=== PATIENT | female | born 1975 | race Two or more races ===

== ENCOUNTER → 2018-11-27 | Outpatient (CLI) | payer SELFPAY ==
--- NOTE | 2018-11-27 13:58 | RADIOLOGY REPORT (SQ) ---
EXAM DESCRIPTION: U/S OB 14+ TRNABD 1GES W/O DOP COMPLETED DATE/TIME: 11/27/2018 1:45 pm REASON FOR STUDY: Z34.82 ENCOUNTER FOR SUPRVSN OF NORMAL , SECOND TRIMESTER Z34.82 ENCOUNT ER FOR SUPRVSN OF NORMAL , SECOND TRI COMPARISON: None. TECHNIQUE: Static and Dynamic grayscale imaging performed of gravid uterus using transabdominal appr oach. Additional selected color Doppler and spectral images recorded. All stored on PACS. LIMITATIONS: None. FINDINGS: FETUSES SEEN:1 EGA: 26 weeks 1 day Calculated using BPD,FL,HC,AC documented on images. No discrepancy with clinical dates. IGOR: 03/04/2019 EFW: 892 grams PERCENTILE: 4% MAURO: 19.9 cm PLACENTA: Anterior. PRESENTATION: Cephalic. ANATOMY: HEART RATE: 140 beats per minute. FOUR CHAMBER HEART: Visualized. THREE VESSEL CORD: Yes. CORD INSERTION: Visualized. KIDNEYS AND BLADDER: Visualized. Appear normal. STOMACH: Visualized. Appears normal. SPINE: Normal as visualized. BRAIN AND LATERAL VENTRICLES: Visualized. Appear normal. OTHER: No other significant finding. MATERNAL ADNEXA: Maternal right ovary measures 3.9 cm x 2.2 cm. Maternal left ovary not visualized. CERVICAL LENGTH: 4.7 cm Closed. OTHER: No other significant finding. IMPRESSION: LIVING INTRAUTERINE . ESTIMATED GESTATIONAL AGE: 26 weeks 1 day NO VISUALIZED ANOMALIES. Trimester of : Second trimester - 13 weeks 1 day to 27 weeks 6 days. TECHNICAL DOCUMENTATION: JOB ID: [id number] [employer]- All Rights Reserved Reading location - IP/workstation name: [email or web address]
== END ==
LOC: RAD 13:00
PROVIDERS: ATTEND Nurse Practitioner Family
DX: Z34.82 Encounter for supervision of other normal pregnancy, second trimester (principal)
CPT/HCPCS: 76805

== ENCOUNTER → 2018-12-25 | Outpatient (CLI) | payer SELFPAY ==
--- NOTE | 2018-12-25 14:12 | RADIOLOGY REPORT (SQ) ---
EXAM DESCRIPTION: U/S OB 14+ TRNABD 1GES W/O DOP COMPLETED DATE/TIME: 12/25/2018 1:40 pm REASON FOR STUDY: Z34.83 ENCOUNTER FOR SUPRVSN OF NORMAL , THIRD TRIMESTER Z34.83 ENCOUNTE R FOR SUPRVSN OF NORMAL , THIRD TRIM COMPARISON: 11/27/2018 TECHNIQUE: Limited transabdominal grayscale ultrasound for evaluation of specific requested obstetri nataliya parameters. LIMITATIONS: None. FINDINGS: CERVICAL LENGTH: 4.6 cm. Closed. MAURO: 14.7 cm. FHR: 160 beats per minute. PRESENTATION: Cephalic. PLACENTA: Anterior, grade 1. ANATOMY: Not assessed OTHER: Estimated gestational age 30 weeks 1 day. Estimated date of delivery 03/04/2019 IMPRESSION: LIMITED OBSTETRICAL ULTRASOUND WITH MEASURED PARAMETERS DELINEATED ABOVE. Trimester of : Third trimester - 28 weeks to delivery. TECHNICAL DOCUMENTATION: JOB ID: [id number] [employer]- All Rights Reserved Reading location - IP/workstation name: [email or web address]
== END ==
LOC: RAD 13:57
PROVIDERS: ATTEND Midwife
DX: Z34.83 Encounter for supervision of other normal pregnancy, third trimester (principal)
CPT/HCPCS: 76805

== ENCOUNTER 2019-02-13 11:15 | Outpatient (CLI) | payer SELFPAY ==
--- NOTE | 2019-02-13 12:15 | Non Stress Test Report ---
Non Stress Test Datetime Report Generated by CPN: 02/13/2019 12:14 DEMOGRAPHIC EGA NST: 37.2 INDICATION Indication for Study (NST) Other: AMA VITAL SIGNS Temperature - NST: 98.2 Pulse - NST: 89 RESP - NST: 18 NBPSYS NST: 106 NBPDIA NST: 58 MONITORING Monitor Explained: Monitor Explained; Test Explained; Patient Verbalized Understanding Time on Monitor: 02/13/2019 11:38 Time off Monitor: 02/13/2019 12:10 NST Duration: 32 NST INTERVENTIONS NST Interventions: Reposition Patient Physician Notified NST: N Olsen BABY A: [id number] BABY A Movement : Present Contraction Frequency : 0 FHR Baseline : 130 Accelerations : 15X15 Decelerations : None Variability : Moderate 6-25bpm NST Review: Meets Criteria for Reactive NST NST Review and Verified By : SAutry NST Results: Reactive NST REPORT Report Trigger: Send Report
== END 2019-02-13 12:24 | disposition home or self-care (01) ==
LOC: LC 11:15
PROVIDERS: ATTEND Obstetrics & Gynecology
PROC: 4A1HXCZ Monitoring of Products of Conception, Cardiac Rate, External Approach (ICD-10-PCS; principal; 2019-02-13)
DX: O09.523 Supervision of elderly multigravida, third trimester (principal); Z3A.37 37 weeks gestation of pregnancy
CPT/HCPCS: 59025

== ENCOUNTER 2019-03-01 06:29 | Inpatient (IN) | payer SELFPAY ==
[2019-03-01] MEDS ORDERED: RINGERS SOLUTION,LACTATED 1,000 ML IV PRN (07:30)
[2019-03-01] MEDS ORDERED: OXYTOCIN/NORMAL SALINE 20 UNIT/1,000 ML RTUINJ IV PRN (07:30)
[2019-03-01] MEDS ORDERED: RINGERS SOLUTION,LACTATED 300 ML IV ONE (07:30)
[2019-03-01] MEDS ORDERED: PENICILLIN G-K 5 MILLION UNIT VIAL IV ONE (07:32)
[2019-03-01] MEDS ORDERED: PENICILLIN G-K 5 MILLION UNIT VIAL ONE (07:46)
[2019-03-01] MEDS ORDERED: OXYTOCIN/NORMAL SALINE 0 UNIT/0 ML RTUINJ ONE (08:02)
[2019-03-01] MEDS ORDERED: LIDOCAINE 1% INJ-PF (10 MG/ML) 30 ML SDV ONE (08:02)
[2019-03-01] MEDS ORDERED: MISOPROSTOL 0.2 MG TABLET ONE (08:02)
[2019-03-01] MEDS ORDERED: OXYTOCIN 10 UNIT/ML VIAL ONE (08:02)
[2019-03-01] MEDS ORDERED: INFLUENZA QUAD (6MOS+) 2019-20 VAC 0.5 ML SYR IM ONE (08:04)
[2019-03-01 08:14] LABS: ABSOLUTE EOSINOPHILS # (AUTO) 0.2 10^3/uL (0.0-0.6); ABSOLUTE LYMPHOCYTES (AUTO) 2.2 10^3/uL (0.5-4.7); ABSOLUTE MONOCYTES (AUTO) 0.6 10^3/uL (0.1-1.4); BASOPHILS % (AUTO) 0.4 % (0-2); EOSINOPHILS % (AUTO) 1.9 % (0-6); HEMATOCRIT 38.7 % (36.0-47.0); HEMOGLOBIN 13.4 g/dL (12.0-15.5); LYMPHOCYTES % (AUTO) 27.7 % (13-45); MEAN CORPUSCULAR HGB CONC 34.6 g/dL (32.0-36.0); MEAN CORPUSCULAR VOLUME 90 fl (80-97); MONOCYTES % (AUTO) 7.4 % (3-13); PLATELET COUNT 209 10^3/uL (150-450); RED BLOOD COUNT 4.32 10^6/uL (3.72-5.28); RED CELL DISTRIBUTION WIDTH 14.2 % (11.5-14.0); SEGMENTED NEUTROPHILS % (AUTO) 62.6 % (42-78); TOTAL CELLS COUNTED % (AUTO) 100 %
--- NOTE | 2019-03-01 08:22 | Admission Physical ---
Datetime Report Generated by CPN: 03/01/2019 08:21 CURRENT ADMISSION Indication for Induction- Other: Elective IOL Admit Impression : Term, Intrauterine ; Induction of Labor Admit Plan: Admit to Unit; Initiate Labor Induction Protocol Admit Plan- Other: +GBS, PCN prophylaxis ALLERGIES Medication Allergies: No Medication Allergies: No Known Allergies (03/01/2019) Latex: No Latex Allergies Food Allergies: none Environmental Allergies: none OBSTETRICAL HISTORY EDC: 03/04/2019 00:00 : 5 Para: 4 Ectopic: 0 Livin Cesareans: 0 VBACs: 0 Multiple Births: 0 Gestational Diabetes: No Rh Sensitization: No Incompetent Cervix: No YOLA: No Infertility: No ART Treatment: No Uterine Anomaly: No IUGR: No Hx Previous C/S: No Macrosomia: No Hx Loss/Stillborn: No PIH: No Hx : No Placenta Previa/Abruption: No Depression/PP Depression: No PTL/PROM: No Post Hemorrhage: No SEE RECORDS Alcohol: No Marijuana : No Cocaine: No Other Illicit Drugs: No Cigarettes: Never Smoker. 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 Surgery: No Heart Disease: No Hosp/Surgery: No Autoimmune Disorder: No Anesthetic Complications: No Kidney Disease: No Abnormal Pap Smear: No Neuro/Epilepsy: No Psychiatric Disorders: No Other Medical Diseases: No Hepatitis/Liver Disease: No Significant Family History: No Varicosities/Phlebitis: No Trauma/Violence : No Thyroid Dysfunction: No INFECTIOUS HISTORY Gonorrhea: No Genital Herpes: No Chlamydia: No Tuberculosis: No Syphilis: No Hepatitis: No HIV/AIDS Exposure: No Rash or Viral Illness: No HPV: No PHYSICAL EXAM General: Normal HEENT: Normal Neurologic: Normal Thyroid: Normal Heart: Normal Lungs: Normal Breast: Normal Back: Normal Abdomen: Normal Genitourinary Exam: Normal Extremities: Normal DTRs: Normal Pelvic Type: Adequate Vital Signs: Reviewed; Within Normal Limits FETUS A Monitoring: External US FHR- Baseline: 145 Variability: Moderate 6-25bpm Accelerations: 15X15 Decelerations: None Admit Comment: Somali speaking, female, here this morning for elective IOL at 39.3 wks. +GBS. Hx + RPR- tx'd this . PNC at the [facility]. In the process of admitting the patient and Somali Interpretor via Video Screen being used. Pt states hx of 8-9 pound babies in the past. Denies issues. EFW 8 lbs on Leapolds. Pt states desires epidural when in labor. Plan to do VE once pt is admitted. Will probably start Pitocin and PCN for IOL. Attending MD today is Dr Neff PLANS FOR LABOR AND DELIVERY Labor and Delivery: None Pain Management: Epidural Feeding Preference: Both Benefit of Breast Feed Discussed: Yes Circumcision: N/A INFORMED CONSENT Assignment: Fredrick Neff MD Signature: with User ID: [email or web address] : with User ID: [email or web address]
[2019-03-01 09:20] LABS: APPEARANCE,URINE SLIGHTLY-CLOUDY; BILIRUBIN,URINE NEGATIVE (NEGATIVE); COLOR,URINE YELLOW; GLUCOSE, URINE NEGATIVE (NEGATIVE); KETONES,URINE NEGATIVE (NEGATIVE); LEUKOCYTE ESTERASE,URINE NEGATIVE (NEGATIVE); NITRITE,URINE NEGATIVE (NEGATIVE); PROTEIN,URINE NEGATIVE (NEGATIVE); URINE SPECIFIC GRAVITY 1.009; UROBILINOGEN,URINE NEGATIVE mg/dL (<2.0)
[2019-03-01 09:43] LABS: URINE AMPHETAMINES SCREEN NEGATIVE; URINE BARBITURATES SCREEN NEGATIVE; URINE BENZODIAZEPINES SCREEN NEGATIVE; URINE COCAINE SCREEN NEGATIVE; URINE MARIJUANA (THC) SCREEN NEGATIVE; URINE METHADONE SCREEN NEGATIVE; URINE PHENCYCLIDINE SCREEN NEGATIVE
[2019-03-01] MEDS ORDERED: PENICILLIN G-K 5 MILLION UNIT VIAL IV SCH (12:00)
--- NOTE | 2019-03-01 12:12 | Non Stress Test Report ---
Non Stress Test Datetime Report Generated by CPN: 03/01/2019 12:12 DEMOGRAPHIC Test Number: 2 EGA NST: 39.4 INDICATION Indication for Study (NST) Other: Scheduled IOL- d/c home per MD order MONITORING Monitor Explained: Monitor Explained; Test Explained; Patient Verbalized Understanding Time on Monitor: 03/01/2019 10:30 Time off Monitor: 03/01/2019 10:54 NST Duration: 24 NST INTERVENTIONS NST Interventions: PO Hydration; IV Fluids; Reposition Patient Physician Notified NST: Dr Neff/ N Olsen CNM BABY A: [id number] BABY A Movement : Present Contraction Frequency : 3-9 FHR Baseline : 130 Accelerations : 15X15 Decelerations : None Variability : Moderate 6-25bpm NST Review: Meets Criteria for Reactive NST NST Review and Verified By : MAY LiuT Results: Reactive NST COMMENTS NST Comments: providers on unit reviewing FHT strip NST REPORT Report Trigger: Send Report
== END 2019-03-01 11:40 | disposition home or self-care (01) | DRG 998 ==
LOC: LR 06:29
PROVIDERS: ADMIT Obstetrics & Gynecology Gynecology; ATTEND Obstetrics & Gynecology Gynecology
DX: O99.824 Streptococcus B carrier state complicating childbirth (principal); Z3A.39 39 weeks gestation of pregnancy
CPT/HCPCS: 36415; 59025; 80307; 81005; 85025; 86592; 86850; 86900; 86901; 90686; 94760; J2540; J2590; J3490

== ENCOUNTER 2019-03-12 08:06 | Inpatient (IN) | payer MEDICAID ==
[2019-03-12] MEDS ORDERED: OXYTOCIN 10 UNIT/ML VIAL ONE ×2 (08:08→19:02)
[2019-03-12] MEDS ORDERED: OXYTOCIN/NORMAL SALINE 20 UNIT/1,000 ML RTUINJ ONE ×2 (08:09→20:59)
[2019-03-12] MEDS ORDERED: LIDOCAINE 1% INJ-PF (10 MG/ML) 30 ML SDV ONE (08:09)
[2019-03-12] MEDS ORDERED: MISOPROSTOL 0.2 MG TABLET ONE (08:09)
[2019-03-12] MEDS ORDERED: RINGERS SOLUTION,LACTATED 300 ML IV ONE (08:25)
[2019-03-12] MEDS ORDERED: OXYTOCIN/NORMAL SALINE 20 UNIT/1,000 ML RTUINJ IV PRN ×2 (08:25→20:28)
[2019-03-12] MEDS ORDERED: PENICILLIN G POTASSIUM 5,000,000 UNIT in DEXTROSE 5%-WATER 100 ML IV ONE (08:26)
[2019-03-12] MEDS: RINGERS SOLUTION,LACTATED 1,000 ML IV PRN ×3 (08:40→14:54)
[2019-03-12 09:09] LABS: APPEARANCE,URINE SLIGHTLY-CLOUDY; BILIRUBIN,URINE NEGATIVE (NEGATIVE); COLOR,URINE YELLOW; GLUCOSE, URINE NEGATIVE (NEGATIVE); KETONES,URINE NEGATIVE (NEGATIVE); LEUKOCYTE ESTERASE,URINE SMALL (NEGATIVE); NITRITE,URINE NEGATIVE (NEGATIVE); PROTEIN,URINE NEGATIVE (NEGATIVE); URINE SPECIFIC GRAVITY 1.006; UROBILINOGEN,URINE NEGATIVE mg/dL (<2.0)
[2019-03-12] MEDS ORDERED: PENICILLIN G-K 5 MILLION UNIT VIAL ONE ×2 (09:09→14:26)
[2019-03-12 09:11] LABS: ABSOLUTE EOSINOPHILS # (AUTO) 0.1 10^3/uL (0.0-0.6); ABSOLUTE MONOCYTES (AUTO) 0.6 10^3/uL (0.1-1.4); ABSOLUTE NEUT (AUTO) 5.1 10^3/uL (1.7-8.2); BASOPHILS % (AUTO) 0.4 % (0-2); EOSINOPHILS % (AUTO) 1.3 % (0-6); HEMATOCRIT 38.7 % (36.0-47.0); HEMOGLOBIN 13.4 g/dL (12.0-15.5); LYMPHOCYTES % (AUTO) 25.9 % (13-45); MEAN CORPUSCULAR HEMOGLOBIN 31.1 pg (27.0-33.4); MEAN CORPUSCULAR HGB CONC 34.7 g/dL (32.0-36.0); MEAN CORPUSCULAR VOLUME 90 fl (80-97); MONOCYTES % (AUTO) 7.3 % (3-13); PLATELET COUNT 196 10^3/uL (150-450); RED BLOOD COUNT 4.31 10^6/uL (3.72-5.28); RED CELL DISTRIBUTION WIDTH 14.5 % (11.5-14.0); SEGMENTED NEUTROPHILS % (AUTO) 65.1 % (42-78); TOTAL CELLS COUNTED % (AUTO) 100 %; WHITE BLOOD COUNT 7.8 10^3/uL (4.0-10.5)
[2019-03-12] MEDS ORDERED: SUCCINYLCHOLINE CHLORIDE INJ 200 MG/10 ML VIAL ONE (09:14)
[2019-03-12 09:31] LABS: URINE AMPHETAMINES SCREEN NEGATIVE; URINE BARBITURATES SCREEN NEGATIVE; URINE BENZODIAZEPINES SCREEN NEGATIVE; URINE COCAINE SCREEN NEGATIVE; URINE MARIJUANA (THC) SCREEN NEGATIVE; URINE METHADONE SCREEN NEGATIVE; URINE PHENCYCLIDINE SCREEN NEGATIVE
[2019-03-12] MEDS: PENICILLIN G POTASSIUM 2,500,000 UNIT in DEXTROSE 5%-WATER 50 ML IV SCH ×2 (14:30→21:58)
[2019-03-12] MEDS ORDERED: EPHEDRINE SULFATE INJ 50 MG/1 ML AMPULE ONE (15:37)
[2019-03-12] MEDS ORDERED: FENTANYL/BUPIVACAINE/NS/PF 0 MCG/0 ML RTUINJ EPI ONE (15:37)
[2019-03-12] MEDS ORDERED: FENTANYL CITRATE INJ/PF 100 MCG/2 ML AMPUL ONE ×5 (15:37→21:52)
[2019-03-12] MEDS ORDERED: BUPIVACAINE HCL 0.25 % INJ/PF (2.5 MG/1 ML) 30 ML VIAL ONE (15:37)
[2019-03-12] MEDS ORDERED: NALBUPHINE HCL INJ 10 MG/1 ML AMPULE INJ ONE (16:08)
[2019-03-12] MEDS ORDERED: NALBUPHINE HCL INJ 10 MG/1 ML AMPULE ONE (16:09)
[2019-03-12] MEDS ORDERED: FENTANYL CITRATE INJ/PF 100 MCG/2 ML AMPUL IV ONE (18:03)
[2019-03-12] MEDS ORDERED: CITRIC ACID/SODIUM CITRATE ORAL SOLN 15 ML UDCUP ONE (18:45)
[2019-03-12] MEDS ORDERED: CEFAZOLIN 1 GM/D5W RTU 2 GM/100 ML RTUPB IV ONE (18:45)
[2019-03-12] MEDS ORDERED: CEFAZOLIN SODIUM 2 GM in DEXTROSE 5%-WATER 50 ML IV PRN (18:47)
[2019-03-12] MEDS ORDERED: KETOROLAC TROMETHAMINE INJ/PF 30 MG/1 ML SDV ONE (19:02)
[2019-03-12] MEDS ORDERED: PROPOFOL INJ 200 MG/20 ML VIAL IV ONE (19:02)
[2019-03-12] MEDS ORDERED: ACETAMINOPHEN 1,000 MG/100 ML RTUPB IV ONE (19:03)
[2019-03-12] MEDS ORDERED: DIPH/PERTUSS(ACELL)/TETANUS VAC/PF 0.5 ML SYR (>=10YO) IM PRN (20:28)
[2019-03-12] MEDS ORDERED: OXYCODONE-ACETAMINOPHEN 5-325 MG TABLET PO PRN ×2 (20:28)
[2019-03-12] MEDS ORDERED: SIMETHICONE 80 MG TAB.CHEW PO PRN (20:28)
[2019-03-12] MEDS ORDERED: MORPHINE SULFATE 10 MG/ML INJ IV PRN (20:28)
[2019-03-12] MEDS ORDERED: PROMETHAZINE HCL INJ 25 MG/1 ML VIAL IV PRN (20:28)
[2019-03-12] MEDS ORDERED: ACETAMINOPHEN 325 MG TABLET PO PRN (20:28)
[2019-03-12] MEDS ORDERED: RINGERS SOLUTION,LACTATED 1,000 ML IV PRN (20:28)
[2019-03-12] MEDS ORDERED: MEASLES,MUMPS&RUBELLA VACC/PF 0.5 ML VIAL SUBCUT PRN (20:28)
[2019-03-12] MEDS ORDERED: ACETAMINOPHEN 1,000 MG/100 ML RTUPB IV PRN (20:28)
--- NOTE | 2019-03-12 20:36 | Operative Report ---
Operative Report DATE OF SURGERY: 03/12/19 PREOPERATIVE DIAGNOSIS: IUP @ 41 03/06, nonreassuring heart tones, failure to progress POSTOPERATIVE DIAGNOSIS: Same OPERATION: Low hysterotomy section with Bowlegs tubal ligation SURGEON: MIGUEL RICKETTS ANESTHESIA: GA TISSUE REMOVED OR ALTERED: Bilateral fallopian tube segments, placenta COMPLICATIONS: None ESTIMATED BLOOD LOSS: 750 cc INTRAOPERATIVE FINDINGS: Female cephalic presentation, Apgars 7 and 9 weight 2970 g PROCEDURE: The patient was taken to the operating room, prepared and draped in anormal sterile fashion in a supine position with a leftward tilt. A transverse skin incision was made with a scalpel and carried through tothe underlying layer of fascia with the same scalpel. The fascia was excised in the midline and extended laterally with Marichuy. The fascia was then dissected from the rectus muscle sharp ly with Marichuy and the rectus muscle was divided and the peritoneal cavity was entered sharply with the same Metzenbaum. With good visualization of the bladder and the uterus the bladder blade was inserted. The hysterotomy was nicked with a scalpel and extended laterally with surgeon finger fraction. The was thendelivered atraumatically. The nose and mouth were suctioned with a suction bulb, the cord was clamped and cut and handed off to awaiting pediatricians. Cord blood was collected. The placenta was removed manually. The uterus was exteriorized and cleared of clots and debris. The hysterotomy was closed with 0 Monocryl in a running, locked fashion. A second layer of the same suture was used to imbricate to ensure hemostasis. Attention was then turned to the fallopian tubes where the right fallopian tube was grasped with a Dora, the mesosalpinx was divided with a Bovie. a 3-1/2 cm segment of fallopian tube was tied off with 2 pieces of 2-0 chromic.this segment was ligated using Metzenbaums and the pedicles were made hemostatic with the Bovie. This procedure was repeated on the left fallopian tube without difficulty. The uterus was returned to the abdomen and peritoneal cavity was cleared of clots and debris. The pedicles were inspected and they were still hemostatic. The rectus muscle and peritoneum were repaired with mattress stitch of 2-0 Chromic. The fascia was c losed with 0-Vicryl. The subcutaneous layer was closed with plain catgut and the skin was closed with 4-0 Vicryl. The patient tolerated the procedure well. Sponge, lap, and needle counts correct x2 and the patient was taken to recovery in stable condition.
[2019-03-12] MEDS ORDERED: AMPICILLIN SOD/SULBACTAM 3 GM VIAL IV SCH (20:45)
[2019-03-12] MEDS ORDERED: MORPHINE SULFATE 10 MG/ML INJ ONE (21:07)
[2019-03-12] MEDS: AMPICILLIN SODIUM/SULBACTAM NA 3 GM in NORMAL SALINE 100 ML IV SCH (22:01)
--- NOTE | 2019-03-12 22:12 | Warning Signs in Babies ---
VOD Warning Signs Datetime Report Generated by [facility]: 03/12/2019 22:11 VOD#[id number] -Warning Signs in Babies: Needs to be viewed. (02/13/2019 11:25:Angelina Quinn RN)
--- NOTE | 2019-03-12 23:12 | Delivery Summary ---
Del Sum A-C Datetime Report Generated by CPN: 03/12/2019 23:12 DELIVERY PERSONNEL DELIVERY PERSONNEL: [id number] Delivery Doctor:: Damaris Washington MD Anesthesiologist:: Surjit RAIL SWITCH OPERATOR:: Barb Garcia CRNA Labor and Delivery Nurse:: Lola Chua RNhydrochloric area supervisor Nurse:: Angelina Quinn RN Ager Tender:: Lola Chua RN Neonatal Nurse Practitioner:: LINDSAY Evans Nursery Nurse:: Cassie Chen RN Vp Hr Diversity/FIREARMS MODEL MAKER: Ivy Farley CST Vp Hr Diversity/FIREARMS MODEL MAKER: Xi Marcos, ST MATERNAL INFORMATION Delivery Anesthesia: General Medications After Delivery: Pitocin Bolus-Please Comment; Pitocin Drip 20 Units/1000ml NSS Meds After Delivery Comment: Pitocin Bolus 20units/1000ml NS Delivery QBL: 1140 Maternal Complications: None LABOR SUMMARY EDC: 03/04/2019 00:00 No. Babies in Womb: 1 Attempted: No Labor Anesthesia: None LABOR INFORMATION Reason for Induction: Post Dates; Other Reason for Induction- Other: AMA Onset of Labor: 03/12/2019 19:21 Oxytocin: Induction Group B Beta Strep: positive Antibiotics # of Doses: 2 Antibiotics Time of Last Dose: 1430 Name of Antibiotic Given: penicillin g Steroids Given: None Reason Steroids Not Administered: Not Applicable MEMBRANES Membranes Rupture Method: Artificial Rupture of Membranes: 03/12/2019 13:00 Length of Rupture (hr): 6.77 Amniotic Fluid Color: Clear Amniotic Fluid Amount: Small STAGES OF LABOR Stage 3 hr: 0 Stage 3 min: 1 Total Time in Labor hr: 0 Total Time in Labor min: 26 VAGINAL DELIVERY Episiotomy: None Laceration #1: None Laceration Extension #1: N/A Laceration Repair: Not Applicable Sponge Count Correct: N/A Sharps Count Correct: N/A CSECTION DELIVERY Primary Indication: Nonreassuring Status Secondary Indication: N/A CSection Urgency: Non-Scheduled CSection Incidence: Primary Labor: Labor Elective: Nonelective CSection Incision: Lower Uterine Transverse Sterilization Procedure: Jesus BABY A INFORMATION Delivery Date/Time: 03/12/2019 19:46 Method of Delivery: Born in Route : No : N/A Forceps: N/A Vacuum Extraction: N/A Shoulder Dystocia : No PRESENTATION/POSITION BABY A Presentation: Cephalic Cephalic Presentation: Vertex Breech Presentation: N/A (Annotations: Data stored by [facility] on behalf of user) PLACENTA INFORMATION BABY A Placenta Delivery Time : 03/12/2019 19:47 Placenta Method of Delivery: Manual Removal Placenta Status: Delivered SCORES BABY A Heart Rate 1 min: >100 bpm Resp Effort 1 min: Slow, Irregular Reflex Irritability 1 min: Cough or Sneeze or Pulls Away Muscle Tone 1 min: Active Motion Color 1 min: Blue/Pale Resuscitation Effort 1 min: Tactile Stimulation SCORE 1 MIN: 7 Heart Rate 5 min: >100 bpm Resp Effort 5 min: Good Cry Reflex Irritability 5 min: Cough or Sneeze or Pulls Away Muscle Tone 5 min: Active Motion Color 5 min: Body [place], Extremities Blue Resuscitation Effort 5 min: Tactile Stimulation SCORE 5 MIN: 9 INFANT INFORMATION BABY A Gestational Age at Delivery: 41.1 Gestational Status: Late Term- 41- 41.6 Weeks Infant Outcome : Liveborn Infant Condition : Stable Infant Sex: Female IDENTIFICATION BABY A Infant Verification Date/Time: 03/12/2019 20:01 ID Band Number: [id number] Mother's Name Verified: Yes Infant RN Verifying Infant: JNiebuhr,RN Additional Verifying Personnel: SLee,RN WEIGHT/LENGTH BABY A Infant Birthweight (gm): 2970 Weight (lb): 6 Weight (oz): 9 Length (in): 19.50 Length (cm): 49.53 CORD INFORMATION BABY A No. Cord Vessels: 3 Nuchal Cord : N/A Cord Blood Taken: Yes-For Eval (Mom's Blood Type - or O+) Infant Suction: None ASSESSMENT BABY A Skin to Skin: No BABY B INFORMATION : N/A
[2019-03-13] MEDS: PENICILLIN G POTASSIUM 2,500,000 UNIT in DEXTROSE 5%-WATER 50 ML IV SCH (01:30)
[2019-03-13] MEDS: RINGERS SOLUTION,LACTATED 1,000 ML IV PRN (01:52)
[2019-03-13] MEDS: KETOROLAC TROMETHAMINE INJ/PF 30 MG/1 ML SDV IV SCH ×3 (01:59→18:04)
[2019-03-13] MEDS: AMPICILLIN SODIUM/SULBACTAM NA 3 GM in NORMAL SALINE 100 ML IV SCH ×2 (05:33→16:03)
[2019-03-13 06:17] LABS: HEMATOCRIT 25.2 % (36.0-47.0); HEMOGLOBIN 8.8 g/dL (12.0-15.5); MEAN CORPUSCULAR HEMOGLOBIN 31.4 pg (27.0-33.4); MEAN CORPUSCULAR HGB CONC 35.2 g/dL (32.0-36.0); MEAN CORPUSCULAR VOLUME 89 fl (80-97); PLATELET COUNT 159 10^3/uL (150-450); RED BLOOD COUNT 2.81 10^6/uL (3.72-5.28); WHITE BLOOD COUNT 6.7 10^3/uL (4.0-10.5)
[2019-03-13] MEDS ORDERED: RINGERS SOLUTION,LACTATED 1,000 ML IV ONE (07:00)
[2019-03-13] MEDS ORDERED: INFLUENZA QUAD (6MOS+) 2019-20 VAC 0.5 ML SYR IM ONE (08:44)
--- NOTE | 2019-03-13 09:47 | PDOC PROGRESS REPORT ---
Subjective-OB Progress Note for:: 03/13/19 Subjective: Pt resting, ready to eat breakfast. Has not been out of bed, FC to BSD with clear yellow urine. at bedside. Pt denies pain. Google translate used for communication. She is bottlefeeding. Physical Exam (OB) Vital Signs: Temp Pulse Resp BP Pulse Ox 99.2 F 80 16 124/63 96 03/13/19 08:14 03/13/19 08:14 03/13/19 08:14 03/13/19 08:14 03/13/19 08:14 Intake & Output 03/12/19 03/13/19 03/14/19 06:59 06:59 06:59 Intake Total 2675 Output Total 400 1200 Balance 2275 -1200 Weight 73.7 kg - PIH/Pre-Eclampsia Headache: Absent Epigastric Pain: No Visual Changes: No - Dressing Removed: No - medipore clean, dry and intact Incision: Dressing Closure Type: opsite - Lochia Lochia Amount: Small 10-25 ml Lochia Color: Rubra/Red - Abdomen Description: Soft, Round Hernia Present: No Fundal Description: Firm, Midline Fundal Height: u/u - u/2 Objective-Diagnostic Laboratory: 03/13/19 05:59 03/12/19 03/13/19 08:33 05:59 WBC 6.7 RBC 2.81 L Hgb 8.8 L D Hct 25.2 L MCV 89 MCH 31.4 MCHC 35.2 RDW 14.0 Plt Count 159 Blood Type O POSITIVE Antibody Screen NEGATIVE Assessment and Plan(PN) - Assessment and Plan (1) Status post primary low transverse section Is this a current diagnosis for this admission?: Yes (2) Non-reassuring heart rate or rhythm affecting management of mother Is this a current diagnosis for this admission?: Yes (3) section with tubal ligation Is this a current diagnosis for this admission?: Yes (4) AMA (advanced maternal age) multigravida 35+ Qualifiers: Trimester: third trimester Qualified Code(s): O09.523 - Supervision of elderly multigravida, third trimester Is this a current diagnosis for this admission?: Yes (5) Acute blood loss as cause of postoperative anemia Is this a current diagnosis for this admission?: Yes - Disposition Anticipated Discharge: Home Within: within 24 hours, within 48 hours
[2019-03-13] MEDS: DOCUSATE SODIUM 100 MG CAPSULE PO SCH ×2 (10:21→18:04)
[2019-03-13] MEDS: PRENATAL VITAMIN W DHA CAPSULE PO SCH (10:21)
[2019-03-13 11:41] LABS: RAPID PLASMA REAGIN REACTIVE 1:1 (NONREACTIVE)
[2019-03-13] MEDS: PENICILLIN G-K 5 MILLION UNIT VIAL IV SCH ×3 (15:21→20:09)
[2019-03-13] MEDS: IBUPROFEN 800 MG TABLET PO SCH (23:50)
[2019-03-14] MEDS: IBUPROFEN 800 MG TABLET PO SCH ×2 (05:24→12:13)
[2019-03-14] MEDS: PRENATAL VITAMIN W DHA CAPSULE PO SCH (09:49)
[2019-03-14] MEDS: DOCUSATE SODIUM 100 MG CAPSULE PO SCH (09:50)
[2019-03-14] MEDS ORDERED: FERRIC CARBOXYMALTOSE INJ 750 MG/15 ML VIAL IV ONE (11:45)
--- NOTE | 2019-03-14 11:47 | PDOC DISCHARGE SUMMARY ---
Impression - Admit/DC Date/PCP Admission Date/Primary Care Provider: 03/12/19 08:06 ADIN UW CNM Discharge Date: 03/14/19 - Discharge Diagnosis (1) AMA (advanced maternal age) multigravida 35+ Is this a current diagnosis for this admission?: Yes (3) Acute blood loss as cause of postoperative anemia Is this a current diagnosis for this admission?: Yes (4) Non-reassuring heart rate or rhythm affecting management of mother Is this a current diagnosis for this admission?: Yes (6) Status post primary low transverse section Is this a current diagnosis for this admission?: Yes (8) section with tubal ligation Is this a current diagnosis for this admission?: Yes - Assessment Summary: s/p primary with tubal ligation ppd2-stable and ready for discharge. Feels ok even with significant change hemoglobin but agreeable to iron. - Additional Information Resuscitation Status: Full Code - needs f/u appt at [facility] for incision check at one week pp Discharge Diet: As Tolerated, Regular Discharge Activity: Activity As Tolerated, Balance Activity w/Rest, No Driving, No Lifting Over 10 Pounds, Pelvic Rest, Slowly Increase Activity, No tub bath, Walk Frequently Referrals: TONI AMOR MD [ACTIVE STAFF] - 03/19/19 2:30 pm (CALL THE OFFICE FOR ANY QUESTIONS AND CONCERNS.) ADIN WU CNM [Primary Care Provider] - Prescriptions: Oxycodone HCl/Acetaminophen [Percocet 5-325 mg Tablet] 2 tab PO Q4HP PRN #20 tablet PRN Reason: For Pain Scale 3-5 Ibuprofen [Motrin 800 mg Tablet] 800 mg PO Q8HP PRN #30 tablet PRN Reason: For Pain Scale 1-3 Docusate Sodium [Colace 100 mg Capsule] 100 mg PO BID #60 capsule Ferrous Sulfate [Feosol 325 mg Tablet] 325 mg PO BID #60 tablet Home Medications: 95/Iron Fum/Folic/Dha [ + Dha Combo Pack] 1 each PO DAILY 02/13/19 Docusate Sodium [Colace 100 mg Capsule] 100 mg PO BID #60 capsule 03/14/19 Ferrous Sulfate [Feosol 325 mg Tablet] 325 mg PO BID #60 tablet 03/14/19 Ibuprofen [Motrin 800 mg Tablet] 800 mg PO Q8HP PRN #30 tablet 03/14/19 Oxycodone HCl/Acetaminophen [Percocet 5-325 mg Tablet] 2 tab PO Q4HP PRN #20 tablet 03/14/19 Results Laboratory Results: WBC 6.7 10^3/uL (4.0-10.5) 03/13/19 05:59 RBC 2.81 10^6/uL (3.72-5.28) L 03/13/19 05:59 Hgb 8.8 g/dL (12.0-15.5) L D 03/13/19 05:59 Hct 25.2 % (36.0-47.0) L 03/13/19 05:59 MCV 89 fl (80-97) 03/13/19 05:59 MCH 31.4 pg (27.0-33.4) 03/13/19 05:59 MCHC 35.2 g/dL (32.0-36.0) 03/13/19 05:59 RDW 14.0 % (11.5-14.0) 03/13/19 05:59 Plt Count 159 10^3/uL (150-450) 03/13/19 05:59 Lymph % (Auto) 25.9 % (13-45) 03/12/19 08:33 Foster % (Auto) 7.3 % (3-13) 03/12/19 08:33 Eos % (Auto) 1.3 % (0-6) 03/12/19 08:33 Baso % (Auto) 0.4 % (0-2) 03/12/19 08:33 Absolute Neuts (auto) 5.1 10^3/uL (1.7-8.2) 03/12/19 08:33 Absolute Lymphs (auto) 2.0 10^3/uL (0.5-4.7) 03/12/19 08:33 Absolute Monos (auto) 0.6 10^3/uL (0.1-1.4) 03/12/19 08:33 Absolute Eos (auto) 0.1 10^3/uL (0.0-0.6) 03/12/19 08:33 Absolute Basos (auto) 0.0 10^3/uL (0.0-0.2) 03/12/19 08:33 Seg Neutrophils % 65.1 % (42-78) 03/12/19 08:33 Urine Color YELLOW 03/12/19 08:16 Urine Appearance SLIGHTLY-CLOUDY 03/12/19 08:16 Urine pH 7.0 (5.0-9.0) 03/12/19 08:16 Ur Specific [place] 1.006 03/12/19 08:16 Urine Protein NEGATIVE mg/dL (NEGATIVE) 03/12/19 08:16 Urine Glucose (UA) NEGATIVE mg/dL (NEGATIVE) 03/12/19 08:16 Urine Ketones NEGATIVE mg/dL (NEGATIVE) 03/12/19 08:16 Urine Blood NEGATIVE (NEGATIVE) 03/12/19 08:16 Urine Nitrite NEGATIVE (NEGATIVE) 03/12/19 08:16 Urine Bilirubin NEGATIVE (NEGATIVE) 03/12/19 08:16 Urine Urobilinogen NEGATIVE mg/dL (<2.0) 03/12/19 08:16 Ur Leukocyte Esterase SMALL (NEGATIVE) H 03/12/19 08:16 Urine Ascorbic Acid NEGATIVE (NEGATIVE) 03/12/19 08:16 Urine Opiates Screen NEGATIVE 03/12/19 08:16 Urine Methadone Screen NEGATIVE 03/12/19 08:16 Ur Barbiturates Screen NEGATIVE 03/12/19 08:16 Ur Phencyclidine Scrn NEGATIVE 03/12/19 08:16 Ur Amphetamines Screen NEGATIVE 03/12/19 08:16 U Benzodiazepines Scrn NEGATIVE 03/12/19 08:16 Urine Cocaine Screen NEGATIVE 03/12/19 08:16 U Marijuana (THC) Screen NEGATIVE 03/12/19 08:16 RPR REACTIVE 1:1 (NONREACTIVE) H 03/12/19 08:33 Blood Type O POSITIVE 03/12/19 08:33 Antibody Screen NEGATIVE 03/12/19 08:33
[2019-03-14 12:17] VITALS: BP 121/66
[2019-03-14] MEDS ORDERED: FERRIC CARBOXYMALTOSE 750 MG in NORMAL SALINE 250 ML IV ONE (14:30)
--- NOTE | 2019-03-16 10:42 | Admission Physical ---
Datetime Report Generated by CPN: 03/16/2019 10:42 CURRENT ADMISSION Indication for Induction- Other: Elective IOL Admit Impression : Term, Intrauterine ; Induction of Labor Admit Plan: Admit to Unit; Initiate Labor Induction Protocol Admit Plan- Other: +GBS, PCN prophylaxis ALLERGIES Medication Allergies: No Medication Allergies: No Known Allergies (03/01/2019) Medication Allergies: No Known Allergies (02/13/2019) Latex: No Latex Allergies Food Allergies: none Environmental Allergies: none OBSTETRICAL HISTORY EDC: 03/04/2019 00:00 : 5 Para: 4 Ectopic: 0 Livin Cesareans: 0 VBACs: 0 Multiple Births: 0 Gestational Diabetes: No Rh Sensitization: No Incompetent Cervix: No YOLA: No Infertility: No ART Treatment: No Uterine Anomaly: No IUGR: No Hx Previous C/S: No Macrosomia: Yes Hx Loss/Stillborn: No PIH: No Hx : No Placenta Previa/Abruption: No Depression/PP Depression: No PTL/PROM: No Post Hemorrhage: No Current Procedures: Ultrasound Obstetrical History Comments: G1- Unsure of year, at home in [facility] G2- Unsure of year, at home in [facility] G3- 1999, at home in [facility] G4- 2007, at home in [facility] G5- Current SEE RECORDS Alcohol: No Marijuana : No Cocaine: No Other Illicit Drugs: No Cigarettes: Never Smoker. [id number] MEDICAL HISTORY Diabetes: No Blood Transfusion: No Pulmonary Disease (Asthma, TB): No Breast Disease: No Hypertension: No Clammer Surgery: No Heart Disease: No Hosp/Surgery: No Autoimmune Disorder: No Anesthetic Complications: No Kidney Disease: No Abnormal Pap Smear: No Neuro/Epilepsy: No Psychiatric Disorders: No Other Medical Diseases: No Hepatitis/Liver Disease: No Significant Family History: No Varicosities/Phlebitis: No Trauma/Violence : No Thyroid Dysfunction: No Medical History Comments: Four deliveries at home. Abnormal Pap smear about three year unsure of what it was. INFECTIOUS HISTORY Gonorrhea: No Genital Herpes: No Chlamydia: No Tuberculosis: No Syphilis: Yes Hepatitis: No HIV/AIDS Exposure: No Rash or Viral Illness: No HPV: No Infectious History Comments: Syphilis 2019 treated. PHYSICAL EXAM General: Normal HEENT: Normal Neurologic: Normal Thyroid: Normal Heart: Normal Lungs: Normal Breast: Normal Back: Normal Abdomen: Normal Genitourinary Exam: Normal Extremities: Normal DTRs: Normal Pelvic Type: Adequate Vital Signs: Reviewed; Within Normal Limits VAGINAL EXAM Dilatation: 3 Effacement: 90 Station: -3 Contraction Comments: q2-4 MEMBRANES Membranes: Ruptured Membranes: Intact FETUS A Monitoring: External US FHR- Baseline: 145 Variability: Moderate 6-25bpm Accelerations: 15X15 Decelerations: None Admit Comment: New Zealander speaking, female, here this morning for elective IOL at 39.3 wks. +GBS. Hx + RPR- tx'd this . PNC at the [facility]. In the process of admitting the patient and New Zealander Interpretor via Video Screen being used. Pt states hx of 8-9 pound babies in the past. Denies issues. EFW 8 lbs on Leapolds. Pt states desires epidural when in labor. Plan to do VE once pt is admitted. Will probably start Pitocin and PCN for IOL. Attending MD today is Dr Neff PLANS FOR LABOR AND DELIVERY Labor and Delivery: None Pain Management: Epidural Feeding Preference: Both Benefit of Breast Feed Discussed: Yes Circumcision: N/A INFORMED CONSENT Assignment: Fredrick Neff MD Signature: with User ID: [email or web address] : with User ID: [email or web address]
--- NOTE | 2019-03-16 10:48 | L&D Progress Notes ---
PROGRESS NOTES Datetime Report Generated by CPN: 03/16/2019 10:48 PROGRESS NOTE Impression: Reassuring Heart Rate Procedures: Artificial ROM; Sterile Vag Exam Plan: Continue Present Management; Induction Plan Other: pt may have an epidural, continue w/ PCN prophylaxis Vital Signs : Reviewed; Within Normal Limits Comment: IOL at 41 wks, +GBS, Pitocin infusing. pt becoming uncomfortable w/ contractions now. VE 3/90/-3, AROM w/ possible light meconium, blood tinged fluid. PCN x 2 doses have infused. Pt may get an epidural if she desires. Position changes encouraged. VAGINAL EXAM Dilatation: 3 Effacement: 90 Station: -3 Contractions: q2-4 Nursing Exam Dilitation: 3.0 Nursing Exam Effacement: 90 Nursing Exam Station: -3 MEMBRANES Membranes: Ruptured FETUS A FHR - Baseline: 130 Monitoring: External US Variability: Moderate 6-25bpm Accelerations: 15X15 Decelerations: Variable FHR Comments: occassional variable, non-reoccuring FETUS C SIGNATURE: [id number];[id number] Assignment: Damaris Washington MD Signature: with User ID: [email or web address] : with User ID: [email or web address]
== END 2019-03-14 17:25 | disposition home or self-care (01) | DRG 784 ==
LOC: LR 08:06 → 2S 22:34
PROVIDERS: ADMIT Obstetrics & Gynecology; ATTEND Obstetrics & Gynecology
PROC: 10D00Z1 Extraction of Products of Conception, Low, Open Approach (ICD-10-PCS; principal; 2019-03-12)
PROC: 0UB70ZZ Excision of Bilateral Fallopian Tubes, Open Approach (ICD-10-PCS; 2019-03-12)
PROC: 10907ZC Drainage of Amniotic Fluid, Therapeutic from Products of Conception, Via Natural or Artificial Opening (ICD-10-PCS; 2019-03-12)
PROC: 3E02340 Introduction of Influenza Vaccine into Muscle, Percutaneous Approach (ICD-10-PCS; 2019-03-14)
DX: O48.0 Post-term pregnancy (principal); D62 Acute posthemorrhagic anemia; O99.824 Streptococcus B carrier state complicating childbirth; O76 Abnormality in fetal heart rate and rhythm complicating labor and delivery; O62.2 Other uterine inertia; O99.02 Anemia complicating childbirth; Z3A.41 41 weeks gestation of pregnancy; Z37.0 Single live birth; Z30.2 Encounter for sterilization; Z23 Encounter for immunization; Z86.19 Personal history of other infectious and parasitic diseases
CPT/HCPCS: 1961; 36415; 80307; 81005; 85025; 85027; 86592; 86850; 86900; 86901; 88302; 88307; 90686; 94799; J0131; J0295; J0330; J0690; J1439; J1885; J2270; J2300; J2540; J2590; J2704; J3010; J3490; J7050; J7120